=== PATIENT | male | born 1960 | race American Indian/Alaskan Native ===

== ENCOUNTER 2021-04-24 13:21 | Emergency (ER) | payer SELFPAY ==
[2021-04-24] MEDS ORDERED: LIDOCAINE (1%) 10 MG/1 ML VIAL 20 ML MDV INFILTRATI ONE (16:14)
--- NOTE | 2021-04-24 16:40 | Emergency Department Report ---
- General Chief complaint: Skin/Abscess/Foreign Body Stated complaint: GEN WEAKNESS Time Seen by Provider: 04/24/21 16:35 Source: patient Mode of arrival: Ambulatory Limitations: No Limitations - History of Present Illness Initial comments: pt is a 60 yo male who presents to the ED with complaints of a left lower facial abscess that began approximately 2 months ago. He states in the last couple weeks it has gotten bigger and more painful. He states he has had this once in the past and has had to have an I&D before. He denies any fever, nausea, vomiting, diarrhea, chills. PMHx none. no allergies to meds. - Related Data Previous Rx's Medication Instructions Recorded Last Taken Type Sulfamethoxazole/Trimethoprim 1 each PO BID #14 tablet 06/26/14 Unknown Rx [Bactrim Ds] diphenhydrAMINE [Benadryl] 25 mg PO Q6HR PRN #20 capsule 06/26/14 Unknown Rx Allergies Allergy/AdvReac Type Severity Reaction Status Date / Time No Known Allergies Allergy Unverified 06/26/14 16:14 Abscess Boil HPI - HPI Chief Complaint: Skin/Abscess/Foreign Body Stated Complaint: GEN WEAKNESS Time Seen by Provider: 04/24/21 16:35 Home Medications: Previous Rx's Medication Instructions Recorded Last Taken Type Sulfamethoxazole/Trimethoprim 1 each PO BID #14 tablet 06/26/14 Unknown Rx [Bactrim Ds] diphenhydrAMINE [Benadryl] 25 mg PO Q6HR PRN #20 capsule 06/26/14 Unknown Rx Allergies/Adverse Reactions: Allergies Allergy/AdvReac Type Severity Reaction Status Date / Time No Known Allergies Allergy Unverified 06/26/14 16:14 ED Review of Systems ROS: Stated complaint: GEN WEAKNESS Other details as noted in HPI Comment: All other systems reviewed and negative ED Past Medical Hx - Past Medical History Previous Medical History?: No - Surgical History Past Surgical History?: Yes Additional Surgical History: L. knee repair. - Social History Smoking Status: Current Some Day Smoker Substance Use Type: Alcohol - Medications Home Medications: Home Medications Medication Instructions Recorded Confirmed Last Taken Type Sulfamethoxazole/Trimethoprim 1 each PO BID #14 tablet 06/26/14 Unknown Rx [Bactrim Ds] diphenhydrAMINE [Benadryl] 25 mg PO Q6HR PRN #20 capsule 06/26/14 Unknown Rx ED Physical Exam - General Limitations: No Limitations General appearance: alert, in no apparent distress - Head Head exam: Present: atraumatic, normocephalic - Eye Eye exam: Present: normal appearance - ENT ENT exam: Present: mucous membranes moist - Neurological Exam Neurological exam: Present: alert, oriented X3 - Psychiatric Psychiatric exam: Present: normal affect, normal mood - Skin Skin exam: Present: warm, dry, other (3 cm area of induration and central flu ctuance present to the left lower mandible region, no significant surrounding erythema ) ED Course Vital Signs 04/24/21 04/24/21 15:10 17:16 Temperature 98.6 F 98.6 F Pulse Rate 80 89 Respiratory 20 16 Rate Blood Pressure 150/82 146/93 [Right] O2 Sat by Pulse 100 99 Oximetry - I & D Left Face Type of Procedure: Simple Site: left lower face overlying the left mandible Blade Size: 11 I & D Procedure: betadine prep, sterile drapes applied, sterile dressing applied Progress: Verbal consent obtained by patient Skin prepped with Betadine, sterile drapes applied, sterile gloves worn, 3 cc of 1% lidocaine without epinephrine used as anesthetic, 1 cm incision made with 11 blade, moderate amount of purulent drainage expressed, probed with blunt hemostats, irrigated with sterile saline, iodoform gauze was placed, patient tolerated well, no complications, bleeding controlled, sterile dressing applied ED Medical Decision Making - Medical Decision Making pt is a 60 yo male who presents to the ED with complaints of a left lower facial abscess that began approximately 2 months ago. He states in the last couple we eks it has gotten bigger and more painful. He states he has had this once in the past and has had to have an I&D before. He denies any fever, nausea, vomiting, diarrhea, chills. PMHx none. no allergies to meds. VSS. on exam: 3 cm area of induration and central fluctuance present to the left lower mandible region, no significant surrounding erythema. I&D performed per procedure note. advised pt Packing will need to be removed in 2 to 3 days. Please keep area clean, dry, covered. May wash around area with soap and water and pat dry. No hot tub, no pool, no soaking water. Follow-up with a primary care doctor for reexamination. Return to emergency room for any new or worsening symptoms. - Differential Diagnosis abscess, cyst, cellulitis Critical care attestation.: If time is entered above; I have spent that time in minutes in the direct care of this critically ill patient, excluding procedure time. ED Disposition Clinical Impression: Facial abscess Disposition: DC-01 TO HOME OR SELFCARE Is pt being admited?: No Does the pt Need Aspirin: No Condition: Stable Instructions: Skin Abscess Additional Instructions: Packing will need to be removed in 2 to 3 days. Please keep area clean, dry, covered. May wash around area with soap and water and pat dry. No hot tub, no pool, no soaking water. Follow-up with a primary care doctor for reexamination. Return to emergency room for any new or worsening symptoms. Referrals: PRIMARY CARE, [Primary Care Provider] - 2-3 Days Time of Disposition: 16:40 Print Language: CENTRAL AFRICAN
[2021-04-24 17:18] VITALS: BP 146/93
== END 2021-04-24 17:17 | disposition home or self-care (01) ==
LOC: ED 13:21
DX: L02.01 Cutaneous abscess of face (principal); F17.200 Nicotine dependence, unspecified, uncomplicated
CPT/HCPCS: 99282